=== PATIENT | female | born 1960 | race Caucasian/White ===

== ENCOUNTER → 2020-07-15 10:27 | Outpatient (CLI) | payer OTHER, SELFPAY ==
--- NOTE | ~2020-07-15 | MM_ITS ---
EXAMINATION: MM screening [facility] BI w rafael HISTORY: Screening mammogram, family history of breast cancer in her sister. TECHNIQUE: Craniocaudal and mediolateral oblique 3-D tomosynthesis images were obtained and synthetic 2-D images were generated. CAD analysis was submitted and interpreted. COMPARISON: 03/27/2019, 09/18/2018, 09/10/2018, 06/30/2017 BREAST PARENCHYMAL COMPOSITION: The breasts are heterogeneously dense, which may obscure small masses . FINDINGS: Stable obscured bilateral breast masses are considered benign given the lack of interval ch mathew. There is no evidence of suspicious mass, calcification, or architectural distortion to suggest malignancy in either breast. There has been no suspicious interval change. IMPRESSION: 1. No mammographic evidence of malignancy. 2. Recommend routine screening mammography in one year. BI-RADS Category 2: Benign finding(s). Reviewed, dictated and finalized at location A. OR BENEFITS SPECIALIST
== END ==
PROVIDERS: PCP Internal Medicine; Visit Provider Nurse Practitioner
DX: Z12.31 Encounter for screening mammogram for malignant neoplasm of breast (principal)
CPT/HCPCS: 77063; 77067

== ENCOUNTER → 2020-09-28 08:10 | Outpatient (CLI) | payer OTHER, SELFPAY ==
--- NOTE | ~2020-09-28 | US_ITS ---
EXAMINATION: US soft tissue abdomen DATE: 09/28/2020 09:08 INDICATION: Left lower quadrant abdominal pain. TECHNIQUE: Multiple grayscale and Doppler ultrasound images of the abdomen were obtained. COMPARISON: None FINDINGS: There is no abnormal mass or lymphadenopathy in the patient's area of concern in the left l ower quadrant. IMPRESSION: 1. No abnormal mass or lymphadenopathy in the patient's area of concern in the left lower quadrant. Reviewed, dictated and finalized at location A. OPERATOR APPRENTICE
== END ==
PROVIDERS: PCP Internal Medicine; Visit Provider Clinical Nurse Specialist
DX: R10.32 Left lower quadrant pain (principal)
CPT/HCPCS: 76705

== ENCOUNTER → 2020-10-06 12:17 | Outpatient (CLI) | payer OTHER, SELFPAY ==
--- NOTE | ~2020-10-06 | XR_ITS ---
XR shoulder RT min 2V 10/06/2020 12:32 INDICATION: Right shoulder pain PROCEDURE: 4 views right shoulder COMPARISON: No prior studies for comparison. FINDINGS: Fracture, dislocation or subluxation is not identified. The soft tissues appear within norm al limits. No foreign bodies are identified. IMPRESSION: 1: NO ACUTE BONE OR JOINT ABNORMALITY IDENTIFIED. Reviewed, dictated and finalized at location B. CONSULTANT
== END ==
PROVIDERS: PCP Internal Medicine; Visit Provider Clinical Nurse Specialist
DX: M25.511 Pain in right shoulder (principal)
CPT/HCPCS: 73030

== ENCOUNTER → 2020-10-19 09:34 | Outpatient (CLI) | payer OTHER, SELFPAY ==
--- NOTE | ~2020-10-19 | MR_ITS ---
EXAMINATION: MR shoulder RT wo con DATE: 10/19/2020 10:16 INDICATION: Right shoulder pain and limited range of motion TECHNIQUE: Magnetic resonance imaging (MRI) of the right shoulder was performed without intravenous c ontrast. Sequences included axial PD-weighted FS FSE, coronal oblique PD-weighted FS FSE, coronal obl ique T2-weighted FS FSE, sagittal PD-weighted FS FSE, and sagittal T1-weighted SE. COMPARISON: Right shoulder radiographs dated 10/06/2020 FINDINGS: Coracoacromial arch: The acromion undersurface is flat in morphology (type I). The coracoacromial ligament is normal. Mild acromioclavicular osteoarthritis. Rotator cuff: Mild supraspinatus and moderate infraspinatus tendinopathy. There is a small split tear extending for millimeters medial to lateral at the distal infraspinatus tendon. The tear extends to the anterior a spect of the middle facet footplate. The tear measures approximately 2 mm AP, extensive greater than one half of the tendon thickness and may involve the articular surface of the tendon. Mild supraspina tus tendinopathy without discrete tear. The teres minor and subscapularis tendons are normal. Normal rotator cuff muscle bulk and signal. Biceps tendon, glenoid labrum and glenohumeral cartilage: Long head of the biceps tendon is normal. Glenoid labrum is normal. Glenohumeral cartilage is normal. Fluid: Physiologic amount of fluid in the glenohumeral joint and biceps tendon sheath. No loose osteochondra l bodies. Mild increased fluid signal in the subacromial/subdeltoid bursa consistent with mild bursit is. Bones: Normal marrow signal with no edema, fracture or abnormal marrow replacing process. IMPRESSION: 1. Mild supraspinatus and moderate infraspinatus tendinopathy with very small partial-thickness tear, possibly with involvement of the articular surface of the middle facet insertion of the anterior inf raspinatus tendon. 2. Mild acromioclavicular osteoarthritis with mild subacromial/subdeltoid bursitis. Reviewed, dictated and finalized at location A. REPAIRER IMPRESSION: 1. Mild supraspinatus and moderate infraspinatus tendinopathy with very small p artial-thickness tear, possibly with involvement of the articular surface of th e middle facet insertion of the anterior infraspinatus tendon. 2. Mild acromioclavicular osteoarthritis with mild subacromial/subdeltoid bursi tis.
== END ==
PROVIDERS: PCP Internal Medicine; Visit Provider Clinical Nurse Specialist
DX: M75.111 Incomplete rotator cuff tear or rupture of right shoulder, not specified as traumatic (principal); M19.011 Primary osteoarthritis, right shoulder; M75.51 Bursitis of right shoulder
CPT/HCPCS: 73221

== ENCOUNTER → 2021-06-01 15:51 | Outpatient (CLI) | payer OTHER, SELFPAY ==
--- NOTE | ~2021-06-01 | MR_ITS ---
EXAMINATION: MR ankle RT wo con DATE: 06/01/2021 16:44 INDICATION: Posterior tibial tendinitis with right foot and ankle pain TECHNIQUE: Magnetic resonance imaging (MRI) of the right ankle was performed without intravenous cont rast. Sequences included sagittal, coronal, and axial proton-density weighted fast spin echo without and with fat saturation. COMPARISON: None FINDINGS: Medial ankle ligaments: Deep and superficial deltoid ligaments as well as the spring ligament are normal. Lateral ankle ligaments: The anterior and posterior inferior tibiofibular ligaments are normal. The anterior talofibular, calc aneofibular and posterior talofibular ligaments are normal. Tendons: Achilles tendon is normal. The peroneus longus and brevis tendons are normal. The tibialis anterior a nd extensor hallucis longus and extensor digitorum longus tendons are normal. The tibialis posterior, flexor digitorum longus and flexor hallucis longus tendons are normal. Plantar fascia: Mild proximal plantar enthesopathy with moderate-sized plantar calcaneal spur at its calcaneal origin . Bones/other: There is prominent marrow edema and cystic changes on either side of the synchondrosis between the na vicula and a type II os naviculare. Mild osteoarthritis at the right ankle with high-grade chondral m alacia with underlying subarticular cystic change at the medial margin of the talar dome. Additional subarticular cystic changes associated with moderate osteoarthritis at the first-fourth tarsal metata rsal joints. Lisfranc ligament complex is normal. Sinus Tarsi and tarsal tunnel are unremarkable. Fluid: Physiologic amount fluid in the joint spaces. No tenosynovitis, bursitis or other abnormal fluid tom ections. IMPRESSION: 1. Edema and prominent cystic change at both sides of the synchondrosis between the navicula and a ty pe II os naviculare consistent with accessory navicular syndrome. 2. Moderate polyarticular osteoarthritis with regions of high-grade chondral malacia at the tibiotala r and first-fourth tarsal metatarsal joints. Reviewed, dictated and finalized at location B. IMPRESSION: 1. Edema and prominent cystic change at both sides of the synchondrosis between the navicula and a type II os naviculare consistent with accessory navicular s yndrome. 2. Moderate polyarticular osteoarthritis with regions of high-grade chondral ma lacia at the tibiotalar and first-fourth tarsal metatarsal joints.
== END ==
PROVIDERS: PCP Internal Medicine; Visit Provider Podiatrist Foot & Ankle Surgery
DX: M76.821 Posterior tibial tendinitis, right leg (principal); M79.89 Other specified soft tissue disorders; M19.071 Primary osteoarthritis, right ankle and foot; M94.271 Chondromalacia, right ankle and joints of right foot
CPT/HCPCS: 73721

== ENCOUNTER → 2021-08-11 12:25 | Outpatient (CLI) | payer OTHER, SELFPAY ==
--- NOTE | ~2021-08-11 | MM_ITS ---
EXAMINATION: MM screening [facility] BI w rafael HISTORY: Screening mammogram TECHNIQUE: Craniocaudal and mediolateral oblique 3-D tomosynthesis images were obtained and synthetic 2-D images were generated. CAD analysis was submitted and interpreted. COMPARISON: 07/15/2020 bilateral screening mammogram 03/27/2019 and 09/18/2018 diagnostic left mammogram and limited left breast ultrasound 09/10/2018, 06/30/2017 bilateral screening mammogram examinations BREAST PARENCHYMAL COMPOSITION: The breasts are heterogeneously dense, which may obscure small masses . FINDINGS: Circumscribed 5 mm mass is noted in the lower inner right breast. Possible new masses in the posterior mid and outer left breast on craniocaudal view. Bilateral diagnostic mammography and bilateral breast ultrasound examination are recommended. IMPRESSION: 1. Possible bilateral breast masses 2. Bilateral diagnostic mammography and bilateral breast ultrasound examination are recommended BI-RADS Category 0: Incomplete: Needs additional imaging evaluation. Reviewed, dictated and finalized at location A. GER STRATEGIC DEVELOPMENT
== END ==
PROVIDERS: PCP Internal Medicine; Visit Provider Nurse Practitioner
DX: Z12.31 Encounter for screening mammogram for malignant neoplasm of breast (principal); R92.8 Other abnormal and inconclusive findings on diagnostic imaging of breast
CPT/HCPCS: 77063; 77067

== ENCOUNTER → 2021-08-30 07:44 | Outpatient (CLI) | payer OTHER, SELFPAY ==
--- NOTE | ~2021-08-30 | MMUS_ITS ---
EXAMINATION: MM diagnostic [facility] BI w rafael, US breast BI limited HISTORY: Bilateral breast masses on screening mammogram TECHNIQUE: Additional 3-D tomosynthesis images of the breasts were performed and synthetic 2-D images were generated. CAD analysis was submitted and interpreted. High resolution limited bilateral breast ultrasound was performed. COMPARISON: 07/12/2021, 07/15/2020, 03/27/2019, 09/18/2018, 09/10/2018, 06/30/2017 BREAST PARENCHYMAL COMPOSITION: The breasts are heterogeneously dense, which may obscure small masses . FINDINGS: MAMMOGRAPHIC FINDINGS: Left breast: There are multiple obscured low density masses in the outer left breast which measure up to 6 mm. No suspicious architectural distortion or calcification are identified. Right breast: There is a 6 mm obscured equal density mass in the middle third of the inner breast at the 3:00 position 5 cm from the nipple. There is also a 6 mm obscured subareolar mass. ULTRASOUND: Left breast: There are multiple anechoic and hypoechoic masses at the outer left breast. The largest is a 5 mm hypoechoic mass at the 6:00 location 2 cm from the nipple with no posterior features or int ernal vascularity. Right breast: There is a cyst at the 3:00 location corresponding to the mammographic finding in quest ion. A circumscribed 6 mm hypoechoic masses seen in the subareolar region. IMPRESSION: 1. Multiple similar appearing bilateral breast masses, consistent with benign findings. 2. Recommend routine screening mammography in one year. BI-RADS Category 2: Benign finding(s). Reviewed, dictated and finalized at location A. JIG OPERATOR IMPRESSION: 1. Multiple similar appearing bilateral breast masses, consistent with benign f indings. 2. Recommend routine screening mammography in one year. BI-RADS Category 2: Benign finding(s).
== END ==
PROVIDERS: PCP Internal Medicine; Visit Provider Nurse Practitioner
DX: R92.8 Other abnormal and inconclusive findings on diagnostic imaging of breast (principal)
CPT/HCPCS: 76642; 77062; 77066; G0279

== ENCOUNTER → 2021-10-07 11:17 | Outpatient (CLI) | payer OTHER, SELFPAY ==
--- NOTE | ~2021-10-07 | DEXA_ITS ---
Bone Density Report Name: HONG LATHAM Age: 61 Sex: Female Ethnicity: White Date of : 1960 Indication: monitoring treatment; postmenopausal Referring Provider: Chichi Bruce Study: Bone densitometry was performed. Exam Date: October 07, 2021 Accession number: [id number] Bone Density: Region BMD T-score Z-score Classification AP Spine (L1-L4) 1.064 0.2 1.5 Normal Femoral Neck (Left) 0.748 -0.9 0.3 Normal Total Hip (Left) 0.981 0.3 1.2 Normal Femoral Neck (Right) 0.764 -0.8 0.5 Normal Total Hip (Right) 0.935 -0.1 0.8 Normal Total Hip Mean 0.958 0.1 1.0 Normal World Health Organization criteria for BMD impression classify patients as: Normal (T-score at or above -1.0), Osteopenia (T-score between -1.0 and -2.5), or Osteoporosis (T-score at or below -2.5). 10-year Fracture Risk: FRAX not reported because: All T-scores for Spine Total, Hip Total, Femoral Neck at or above -1.0 Treated for osteoporosis Previous Exams: Region Exam Age BMD T-score BMD Change BMD Change Date g/cm2 vs Baseline vs Previous AP Spine(L1-L4) 10/07/2021 61 1.064 0.2 0.025* 0.025* 08/24/2016 56 1.039 -0.1 Total Hip(Left) 10/07/2021 61 0.981 0.3 0.029* 0.029* 08/24/2016 56 0.952 0.1 Total Hip(Right) 10/07/2021 61 0.935 -0.1 0.031* 0.031* 08/24/2016 56 0.904 -0.3 *Denotes significance at 95% confidence level, LSC for AP Spine = 0.022 g/cm2, LSC for Total Hip = 0.027 g/cm2 Clinical Information Provided by Patient: Is being treated for osteoporosis Has used the following medications: HRT (i.e. estrogen/hormone therapy), Vitamin D, MULTI VITAMIN Patient maximum height was 66.3 Menopause Age: 46 No regular weight bearing exercise Drinks caffeinated beverages Onset of menses at age 15 Number of children 0 Impression: The patient has normal bone mass. No significant bone loss was observed. Discussion: PATIENT UNDER TREATMENT WITH NO SIGNIFICANT BMD LOSS SINCE LAST EXAM. In an untreated patient, BMD typically declines with age. A lack of decline or gain is usually a sign that treatment is efficacious and fracture risk is reduced. It is important to ask patients whether they are taking their medications and to encourage continued and appropriate compliance with their osteoporosis therapies to reduce fracture risk. It is also important to review their risk factors and encourage appropriate
== END ==
PROVIDERS: Visit Provider Nurse Practitioner
DX: Z78.0 Asymptomatic menopausal state (principal)
CPT/HCPCS: 77080

== ENCOUNTER → 2022-11-20 15:14 | Outpatient (CLI) | payer OTHER, SELFPAY ==
--- NOTE | ~2022-11-20 | MM_ITS ---
EXAMINATION: MM screening [facility] BI w rafael HISTORY: Screening TECHNIQUE: Craniocaudal and mediolateral oblique 3-D tomosynthesis images were obtained and synthetic 2-D images were generated. CAD analysis was submitted and interpreted. COMPARISON: Comparison to multiple prior studies sequentially, with oldest reviewed study dated 09/10. BREAST PARENCHYMAL COMPOSITION: There are scattered areas of fibroglandular density. FINDINGS: Bilateral breast asymmetries are stable. There is no evidence of suspicious mass, calcifica tion, or architectural distortion to suggest malignancy in either breast. There has been no suspiciou s interval change. IMPRESSION: 1. No mammographic evidence of malignancy. 2. Recommend routine screening mammography in one year. BI-RADS Category 2: Benign finding(s). Reviewed, dictated and finalized at location A.
== END ==
PROVIDERS: PCP Internal Medicine; Visit Provider Obstetrics & Gynecology
DX: Z12.31 Encounter for screening mammogram for malignant neoplasm of breast (principal)
CPT/HCPCS: 77063; 77067

== ENCOUNTER → 2023-03-08 11:28 | Outpatient (CLI) | payer OTHER, SELFPAY ==
--- NOTE | ~2023-03-08 | XR_ITS ---
EXAMINATION: XR lumbar spine 2-3V DATE: 03/08/2023 11:59 INDICATION: Low back and left hip pain TECHNIQUE: Anteroposterior and lateral views of the lumbar spine, and cone-down lateral view of the l umbosacral junction were obtained. COMPARISON: None. FINDINGS: There are 3 mm of anterolisthesis of L4 on L5. There is no fracture. There is mild loss of intervertebral disc space height at L5-S1. The vertebral body heights are maintained. There is modera te facet joint osteoarthritis of the lower lumbar spine. A moderate volume of colonic stool is presen t. IMPRESSION: 1. Mild lower lumbar spondylosis. Reviewed, dictated and finalized at location L.
--- NOTE | ~2023-03-08 | XR_ITS ---
AP and lateral views of the left hip Clinical history: Pain Findings: No acute fracture or dislocation is seen. Osseous alignment is anatomic. The left hip joint and left SI joint are preserved. Soft tissues are unremarkable. Impression: No significant abnormality is seen. Reviewed, dictated and finalized at [facility]. Impression: No significant abnormality is seen.
== END ==
PROVIDERS: PCP Internal Medicine; Visit Provider Nurse Practitioner
DX: M25.552 Pain in left hip (principal); M47.896 Other spondylosis, lumbar region
CPT/HCPCS: 72100; 73502

== ENCOUNTER → 2023-05-24 10:52 | Outpatient (CLI) | payer OTHER, SELFPAY ==
--- NOTE | ~2023-05-24 | MR_ITS ---
EXAMINATION: MR lumbar spine wo con DATE: 05/24/2023 11:25 INDICATION: Low back pain, unspecified. TECHNIQUE: Magnetic resonance imaging (MRI) of the lumbar spine was performed without intravenous con trast. Sequences included sagittal T2-weighted FSE, sagittal T2-weighted FS FSE, sagittal T1-weighted FSE, and axial T2-weighted FSE. COMPARISON: Lumbar spine radiographs 03/08/2023 FINDINGS: There is 4 degrees dextrocurvature of thoracolumbar spine. Vertebral body heights are servando l. Intervertebral disc heights heights are normal. The distal spinal cord signal intensity is normal. The conus medullaris is at L1. There are peripelvic cysts in left kidney. The following disc levels are specifically discussed: L1-L2: The disc does not extend beyond the endplate margin. There is mild bilateral facet joint osteo arthritis. There is no neural foraminal stenosis. There is no central canal stenosis. L2-L3: The disc does not extend beyond the endplate margin. There is mild bilateral facet joint osteo arthritis. There is no neural foraminal stenosis. There is no central canal stenosis. L3-L4: The disc is bulging. There is mild bilateral facet joint osteoarthritis. There is mild bilater al neural foraminal stenosis. There is mild central canal stenosis. L4-L5: The disc is bulging and has an annular fissure. There is severe bilateral facet joint osteoart hritis. There is mild bilateral neural foraminal stenosis. There is mild central canal stenosis. L5-S1: There is a central protrusion. There is severe right and mild left facet joint osteoarthritis. There is no neural foraminal stenosis. There is mild central canal stenosis. IMPRESSION: 1. Mild lumbar spondylosis. Reviewed, dictated and finalized at location E. IMPRESSION: 1. Mild lumbar spondylosis.
== END ==
PROVIDERS: PCP Pain Medicine Pain Medicine; Visit Provider Clinical Nurse Specialist
DX: M47.816 Spondylosis without myelopathy or radiculopathy, lumbar region (principal)
CPT/HCPCS: 72148

== ENCOUNTER 2024-02-12 12:24 | Outpatient (CLI) | payer OTHER, SELFPAY ==
--- NOTE | ~2024-02-12 | MM_ITS ---
EXAMINATION: MM screening [facility] BI w rafael HISTORY: Screening TECHNIQUE: Craniocaudal and mediolateral oblique 3-D tomosynthesis images were obtained and synthetic 2-D images were generated. CAD analysis was submitted and interpreted. COMPARISON: Comparison to multiple prior studies sequentially, with oldest reviewed study dated 06/27. BREAST PARENCHYMAL COMPOSITION: Not dense: There are scattered areas of fibroglandular density. FINDINGS: Breast asymmetries are stable. There is no evidence of suspicious mass, calcification, or a rchitectural distortion to suggest malignancy in either breast. There has been no suspicious interval change. IMPRESSION: 1. No mammographic evidence of malignancy. 2. Recommend routine screening mammography in one year. BI-RADS Category 1: Negative Reviewed, dictated and finalized at location B.
== END 2024-02-12 12:25 ==
LOC: MICIMG 12:25
PROVIDERS: PCP Obstetrics & Gynecology; Visit Provider Nurse Practitioner
DX: Z12.31 Encounter for screening mammogram for malignant neoplasm of breast (principal)
CPT/HCPCS: 77063; 77067

== ENCOUNTER 2025-02-10 02:04 | Day surgery (SDC) | payer OTHER, SELFPAY ==
[2025-01-27 13:51] VITALS: BMI 33.7
[2025-02-10 08:43] VITALS: BP 144/72; PULSE 80; RESP 16; TEMP 36.7; O2SAT 100; BMI 34.0
[2025-02-10] MEDS: LACTATED RINGERS 1,000 ML 150 ML IV CONT (09:00)
--- NOTE | 2025-02-10 09:09 | WPDANESEPPF ---
Anes - Initial Pre Proc Eval Procedure: Operation Date: 02/10/25 10:00 Proposed Procedures p Screening Colonoscopy - Robin Perkins MD Date/Time: 02/10/25 09:09 Surgeon: Robin Perkins MD Pre Op Diagnosis: Encounter for screening for malignant neoplasm of Patient Data Age: 64 Gender: F Height: 1.68 m Weight: 95.8 kg Last Vital Signs Temp 36.7 C 02/10/25 08:43 Pulse 80 02/10/25 08:43 Resp 16 02/10/25 08:43 BP 144/72 H 02/10/25 08:43 Pulse Ox 100 02/10/25 08:43 O2 Del Method Room Air 02/10/25 08:43 Allergies Allergy/AdvReac Type Severity Reaction Status Date / Time Penicillins Allergy Unknown Rash Verified 02/10/25 08:48 tetracycline Allergy Unknown Swelling Verified 02/10/25 08:48 Home Medications ?Medication ?Instructions ?Recorded ?Confirmed ?Type lactobacillus combination no.4 3 3,000 mmu cells PO DAILY 10/15/23 02/10/25 History billion cell capsule (Probiotic) multivitamin (Multiple Vitamins 1 tablet PO DAILY 10/15/23 02/10/25 History tablet) clobetasol 0.05 % topical ointment 1 applic topical .COMPLEX 2 weeks 10/28/24 02/10/25 Rx #60 grams lisinopril 10 mg tablet See Rx Instructions .Route 11/04/24 02/10/25 Rx .COMPLEX #90 tabs hydrochlorothiazide 25 mg tablet See Rx Instructions .Route 11/26/24 02/10/25 Rx .COMPLEX #90 tabs glucosamine-chondroitin 250 mg-200 2 tablet PO DAILY 01/27/25 02/10/25 History mg tablet Patient hx anesthesia problems: none Family hx anesthesia problems: none Results Review: All pre-operative results and documents have been reviewed as part of the pre-operative evaluation. [facility] Past Medical History Medical History Screening mammogram, encounter for Atrophic vaginitis Lichen sclerosus Seasonal allergies Weight gain Wears glasses HTN (hypertension) Vitamin D deficiency Surgical History Surgical History History of foot surgery Left bunionectomy-2019 (Dr. Matias BECK) Right bunionectomy-2020 (Dr. Yee Seymour DPM) History of hysterectomy Family History Family History Father Myocardial infarction Sibling Breast cancer Other Diabetes mellitus Hypertension Social History Social History Social History: caffeine-coffee daily Smoking status: Never smoker Alcohol intake: current Alcohol use details: social Substance use: never Substance use type: does not use Lack of Food: Never True Current Housing: Decline to Answer Concerned About Future Housing: Decline to Answer Difficulty Paying Gas/Electric Bills: Decline to Answer Difficulty Paying for Meds: Decline to Answer Currently Unemployed: Decline to Answer Education: Decline to Answer Difficulty w/ Childcare or Family Care: Decline to Answer Living arrangements: with family Occupation/Education: occupation 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 Gender identity (if verbalized by the patient): Female Sexual Orientation (if Verbalized by the Patient): Straight or Heterosexual Spiritual care concerns: No Anes - Eval Final PreProcedure Day of Procedure 02/10/25 09:09 Patient weight: obese Heart: regular rate and rhythm Lungs: clear to auscultation Airway: Mallampati scale class II Neurological: alert and oriented Last oral intake: >/= 8 hours ASA classification: III Emergent: no Anesthetic plan: proceed Anesthesia type and monitoring: general GIVS and standard monitoring Results Review: All pre-operative results and documents have been reviewed as part of the pre-operative evaluation. Informed Consent: The patient's anesthetic plan and its attendant risks and benefits were discussed with the patient/family/POA. Questions were solicited and answers provided to the satisfaction of the patient/family/POA.
--- NOTE | 2025-02-10 09:22 | PM.IMHP ---
H&P: HPI History of Present Illness Date/Time: 02/10/25 09:22 Chief Complaint: Screening colonoscopy Narrative: This is the patient's 2nd colonoscopy. There are no GI symptoms and there is no family history of colorectal cancer. Review of Systems Review of Systems: All systems reviewed & are unremarkable except as noted in HPI and below PMFSH Past Medical History Medical History Screening mammogram, encounter for Atrophic vaginitis Lichen sclerosus Seasonal allergies Weight gain Wears glasses HTN (hypertension) Vitamin D deficiency Surgical History Surgical History History of foot surgery Left bunionectomy-2018 (Dr. Matias BECK) Right bunionectomy-2019 (Dr. Yee Seymour DPM) History of hysterectomy Family History Family History Father Myocardial infarction Sibling Breast cancer Other Diabetes mellitus Hypertension Social History Social History Social History: caffeine-coffee daily Smoking status: Never smoker Alcohol intake: current Alcohol use details: social Substance use: never Substance use type: does not use Lack of Food: Never True Current Housing: Decline to Answer Concerned About Future Housing: Decline to Answer Difficulty Paying Gas/Electric Bills: Decline to Answer Difficulty Paying for Meds: Decline to Answer Currently Unemployed: Decline to Answer Education: Decline to Answer Difficulty w/ Childcare or Family Care: Decline to Answer Living arrangements: with family Occupation/Education: occupation 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 Gender identity (if verbalized by the patient): Female Sexual Orientation (if Verbalized by the Patient): Straight or Heterosexual Spiritual care concerns: No Meds Home Medications and Allergies Home Medications ?Medication ?Instructions ?Recorded ?Confirmed ?Type lactobacillus combination no.4 3 3,000 mmu cells PO DAILY 10/15/23 02/10/25 History billion cell capsule (Probiotic) multivitamin (Multiple Vitamins 1 tablet PO DAILY 10/15/23 02/10/25 History tablet) clobetasol 0.05 % topical ointment 1 applic topical .COMPLEX 2 weeks 10/28/24 02/10/25 Rx #60 grams lisinopril 10 mg tablet See Rx Instructions .Route 11/04/24 02/10/25 Rx .COMPLEX #90 tabs hydrochlorothiazide 25 mg tablet See Rx Instructions .Route 11/26/24 02/10/25 Rx .COMPLEX #90 tabs glucosamine-chondroitin 250 mg-200 2 tablet PO DAILY 01/27/25 02/10/25 History mg tablet Allergies Allergy/AdvReac Type Severity Reaction Status Date / Time Penicillins Allergy Unknown Rash Verified 02/10/25 08:48 tetracycline Allergy Unknown Swelling Verified 02/10/25 08:48 Vital Signs Vital Signs - 24 hr 02/10/25 08:43 Temperature 98.0 F Pulse Rate 80 Respiratory Rate 16 Blood Pressure 144/72 H Pulse Oximetry 100 Oxygen Delivery Room Air Exam Const: General: cooperative and healthy appearing Resp: Effort & Inspection: normal respiratory effort and able to speak in complete sentences Auscultation: clear to auscultation bilaterally Cardio: Rate: regular rate Rhythm: regular rhythm GI: Inspection: normal to inspection GI Palp: No No hepatosplenomegaly present Auscultation: normal bowel sounds Rectal Exam: deferred Skin: General skin exam: normal color Psych: Appearance: grossly normal Mental Status: mental status grossly normal Assessment and Plan Assessment and plan (1) Screening for colon cancer: Code(s): Z12.11 - Encounter for screening for malignant neoplasm of colon Status: Acute Assessment and Plan: The patient is deemed a good candidate for the procedure. Consent signed. Will proceed.
[2025-02-10 09:42] VITALS: BP 134/55; PULSE 84; RESP 20; O2SAT 100
[2025-02-10 09:52] VITALS: BP 133/52; PULSE 74; RESP 19; O2SAT 100
[2025-02-10 10:02] VITALS: BP 149/72; PULSE 64; RESP 20; O2SAT 100
== END 2025-02-10 10:14 | disposition home or self-care (01) ==
PROVIDERS: PCP Nurse Practitioner; Referring Provider Nurse Practitioner; Visit Provider Internal Medicine Gastroenterology
PROC: 0DJD8ZZ Inspection of Lower Intestinal Tract, Via Natural or Artificial Opening Endoscopic (ICD-10-PCS; CPT 45378; principal; 2025-02-10 10:00)
DX: Z12.11 Encounter for screening for malignant neoplasm of colon (principal); K57.30 Diverticulosis of large intestine without perforation or abscess without bleeding; I10 Essential (primary) hypertension; E55.9 Vitamin D deficiency, unspecified; E66.9 Obesity, unspecified; Z68.34 Body mass index [BMI] 34.0-34.9, adult; Z98.890 Other specified postprocedural states; Z80.3 Family history of malignant neoplasm of breast; Z82.49 Family history of ischemic heart disease and other diseases of the circulatory system
CPT/HCPCS: 45378; J2003; J2704; J7120

== ENCOUNTER 2025-03-20 09:19 | Outpatient (CLI) | payer OTHER, SELFPAY ==
--- NOTE | ~2025-03-20 | MR_ITS ---
EXAMINATION: MR ankle RT wo con DATE: 03/20/2025 09:50 INDICATION: Posterior tibial tendinitis with right foot and ankle pain TECHNIQUE: Magnetic resonance imaging (MRI) of the right ankle was performed without intravenous cont rast. Sequences included sagittal, coronal, and axial proton-density weighted fast spin echo without and with fat saturation. COMPARISON: None. FINDINGS: Medial ankle ligaments: Deep and superficial deltoid ligaments as well as the spring ligament are normal. Lateral ankle ligaments: The anterior and posterior inferior tibiofibular ligaments are normal. The anterior talofibular, calc aneofibular and posterior talofibular ligaments are normal. Tendons: Achilles tendon is normal. Mild peroneal tenosynovitis. The peroneus longus and brevis tendons are no rmal. The tibialis anterior and extensor hallucis longus and extensor digitorum longus tendons are no rmal. There is also mild tenosynovitis along the normal posterior tibial tendon. The flexor digitorum longus and flexor hallucis longus tendons are normal. Plantar fascia: Mild proximal patellar enthesopathy with moderate-sized spurs calcaneal origin and mild edema in the underlying plantar fat pad consistent with mild plantar fasciitis. Bones/other: No fracture. Again seen is prominent marrow edema and cystic change on either side of the synchondros is between the navicula and a type II os navicularis. Unchanged mild osteoarthritis of the right ankl e with focal high-grade chondral malacia with underlying cystlike changes along the medial aspect of the talar dome. Additional moderate to severe polyarticular osteoarthritis with subarticular cystlike and edema-like signal changes at first-fourth tarsal metatarsal joints. Mild osteoarthritis at the f ifth tarsal metatarsal joint and remaining joints in the hindfoot. . Fluid: Physiologic amount fluid in the joint spaces. There is mild edema in the tissues surrounding the rece ss of the subtalar joint including significant sinus Tarsi but without loss of fat signal at the sinu s Tarsi. IMPRESSION: 1. Persistent edema and prominent cystic change at both sides of the synchondrosis between the navicu la and a type II os navicularis consistent with accessory navicular syndrome. 2. Relatively stable appearance of polyarticular osteoarthritis, moderate to severe with associated h igh-grade chondral malacia at the first and fourth tarsometatarsal joints and mild at the ankle and r emaining joints in the mid and hindfoot with additional high-grade chondral malacia along the medial margin of the talar dome. 3. Mild tenosynovitis along the otherwise normal-appearing peroneal and posterior tibial tendons. Reviewed, dictated and finalized at location A. IMPRESSION: 1. Persistent edema and prominent cystic change at both sides of the synchondro sis between the navicula and a type II os navicularis consistent with accessory navicular syndrome. 2. Relatively stable appearance of polyarticular osteoarthritis, moderate to se reina with associated high-grade chondral malacia at the first and fourth tarsom etatarsal joints and mild at the ankle and remaining joints in the mid and hind foot with additional high-grade chondral malacia along the medial margin of the talar dome. 3. Mild tenosynovitis along the otherwise normal-appearing peroneal and posteri or tibial tendons.
== END 2025-03-20 09:20 | disposition home or self-care (01) ==
LOC: MICIMG 09:20
PROVIDERS: PCP Nurse Practitioner; Visit Provider Podiatrist Foot & Ankle Surgery
DX: R60.9 Edema, unspecified (principal); Q66.89 Other specified congenital deformities of feet; M85.671 Other cyst of bone, right ankle and foot; M19.071 Primary osteoarthritis, right ankle and foot; M94.28 Chondromalacia, other site; M94.271 Chondromalacia, right ankle and joints of right foot; M65.871 Other synovitis and tenosynovitis, right ankle and foot; M76.821 Posterior tibial tendinitis, right leg
CPT/HCPCS: 73721